=== PATIENT | female | born 1970 | race American Indian/Alaskan Native ===

== ENCOUNTER 2021-05-22 07:45 | Day surgery (SDC) | payer OTHER ==
[~2021-05-22 07:45] MED LIST: SODIUM CHLORIDE 0.9% 1000 ML 1,000 ML IV SCH
--- NOTE | 2021-05-22 09:00 | Anesthesia Consultation ---
Anesthesia Consult and Med Hx Date of service: 05/22/21 - Airway Anesthetic Teeth Evaluation: Good ROM Head & Neck: Adequate Mental/Hyoid Distance: Adequate Mallampati Class: Class I Intubation Access Assessment: Good - Pre-Operative Health Status ASA Pre-Surgery Classification: ASA1 Proposed Anesthetic Plan: MAC - Pulmonary Hx Smoking: No Hx Respiratory Symptoms: No - Cardiovascular System Hx Hypertension: No - Central Nervous System CVA: No - Endocrine Hx Renal Disease: No Hx Liver Disease: No Hx Insulin Dependent Diabetes: No Hx Non-Insulin Dependent Diabetes: No Hx Thyroid Disease: No - Other Systems Hx Obesity: No
--- NOTE | 2021-05-22 09:01 | Anesthesia Day of Surgery ---
Anesthesia Day of Surgery - Day of Surgery Patient Examined: Yes Patient H&P Reviewed: Yes Patient is NPO: Yes
[2021-05-22] MEDS ORDERED: propofoL 200 MG/20 ML VIAL IV ONE ×2 (09:34→09:49)
[2021-05-22] MEDS ORDERED: LIDOCAINE MPF (2%) 20 MG/1 ML VIAL 5 ML ONE (09:34)
--- NOTE | 2021-05-22 10:13 | Procedure Note ---
Date of procedure: 05/22/21 Pre-op diagnosis: Colon Polyp Screening/ F/H/O Cancer (Breast Cancer- [facility] [place]) Post-op diagnosis: other (Solitary,Small Sigmoid Polyp (possibly Hyperplastic)/Solitary,Proximal colon Diverticuli,Small,Left Colon Diverticuli/Minor,Inyernal Hemorrhoids) Procedure: Colonoscopy with Cold Biopsy Anesthesia: MAC Surgeon: ZINA ARREOLA Estimated blood loss: minimal Pathology: list Specimen disposition: to lab Condition: stable Disposition: same day (Avoid aspirin and NSAID for 4 days, otherwise resume home medication and F/U in 1 to 2weeks ([phone]).)
--- NOTE | 2021-05-22 11:25 | Operative Report ---
DATE OF SURGERY: 05/22/2021 PROCEDURE PERFORMED: Colonoscopy with biopsy. INDICATIONS: The patient is a 50-year-old -[place] female with a family history of cancer. The patient's mother had breast cancer. Colonoscopy was done because of her age as part of colon polyp screening. Initial rectal exam was unremarkable. DESCRIPTION OF PROCEDURE: Instrument was passed through the rectum on to the cecum, which was identified with the ileocecal valve and the appendiceal orifice. Visualization was fair. The mucosa was washed with copious amounts of water. There was a solitary diverticulum noted in the cecum. No other pathology was noted in the cecum, ascending colon or the transverse colon. In the descending colon, there was a small diverticula also noted and in the sigmoid, there was a small polyp, possibly hyperplastic, that was removed by cold biopsy, and the rectum showed some minor internal hemorrhoid on the retroverted view. There was minimal bleeding associated with the biopsy and no complications associated with the procedure. ASSESSMENT: Colon polyp screening, family history of cancer, the patient's mother had breast cancer, solitary sigmoid colon polyp, possibly hyperplastic, removed by cold biopsy. Solitary proximal colon diverticulum and a minor left colon diverticulum noted and minor internal hemorrhoid. The patient will be asked to avoid aspirin and aspirin-related products for the next 4-5 days, otherwise resume home medications. The patient will also be encouraged to take fiber supplements and follow up in the office in 1-2 weeks' time. Procedure was done in the GI lab with the assistance of the GI lab team, which included the GI nurse, the technical administrative assistant and with the assistance of anesthesia. TID: [id number] RECEIPT: [id number] ARA/[id number] cc: [facility]
--- NOTE | 2021-05-22 11:28 | Post Anesthesia Evaluation ---
- Post Anesthesia Evaluation Patient Participated: Yes Airway Patent: Yes Stable Respiratory Function: Yes Nausea/Vomiting: No Temp > 96.8F: Yes Pain Manageable: Yes Adequeate Hydration: Yes Anesthesia Complications: No
[2021-05-22 12:50] VITALS: BP 120/84
== END 2021-05-22 10:40 | disposition home or self-care (01) ==
LOC: GIO 07:45
DX: Z12.11 Encounter for screening for malignant neoplasm of colon (principal); K63.5 Polyp of colon; K57.30 Diverticulosis of large intestine without perforation or abscess without bleeding; K64.8 Other hemorrhoids; K63.89 Other specified diseases of intestine; Z80.0 Family history of malignant neoplasm of digestive organs; Z85.3 Personal history of malignant neoplasm of breast; Z20.822 Contact with and (suspected) exposure to COVID-19
CPT/HCPCS: 45380; 88305; J2704; J3490; J7030; U0003; J7120; Q0162